=== PATIENT | male | born 1980 ===

== ENCOUNTER 2017-07-07 09:28 | Emergency (ER) | payer OTHER ==
[2017-07-07 09:46] VITALS: BP 130/72; PULSE 88; RESP 17; TEMP 98.1; O2SAT 99
--- NOTE | 2017-07-07 11:03 | ED PDOC ---
Upper Extremity Pain/Injury Chief Complaint (Provider): right 1st finger laceration History Per: Patient History/Exam Limitations: no limitations Onset/Duration Of Symptoms: Hrs Current Symptoms Are (Timing): Still Present Quality: Aching Severity: Mild Pain Scale Rating Of: 3 Exacerbating Factor(s): Nothing Additional Complaint(s): 37 y/o male, with unremarkable PMHx, presents due to right 1st finger laceration that happened approx 1.5 hrs ago. Pt was at his home, attempting to close a window which already contained broken glass when his hand slipped causing a laceration on the palmar aspect of his right 1st digit. Reports moderate amount of bleeding that stopped with compression. 2/10 pain, worse with flexion of finger. Unsure if any glass was injected into the region. Denies tetanus vaccination. Denies any numbness/tingling. No other complaints. <Boom Vargas - Last Filed: 07/07/17 12:07> <Haylee Holland - Last Filed: 07/07/17 15:02> Time Seen by Provider: 07/07/17 10:16 Chief Complaint (Nursing): Abnormal Skin Integrity Past Medical History Vital Signs: Last Vital Signs Temp 98.1 F 07/07/17 09:44 Pulse 88 07/07/17 09:44 Resp 17 07/07/17 09:44 BP 130/72 07/07/17 09:44 Pulse Ox 99 07/07/17 09:44 - Medical History PMH: No Chronic Diseases - Family History Family History: States: No Known Family Hx <Boom Vargas - Last Filed: 07/07/17 12:07> Vital Signs: Last Vital Signs Temp 98.1 F 07/07/17 09:44 Pulse 88 07/07/17 09:44 Resp 17 07/07/17 09:44 BP 130/72 07/07/17 09:44 Pulse Ox 99 07/07/17 12:09 <Haylee Holland - Last Filed: 07/07/17 15:02> - Home Medications Home Medications: Ambulatory Orders Medication Instructions Recorded Cephalexin [Keflex] 500 mg PO BID #14 capsule 07/07/17 - Allergies Allergies/Adverse Reactions: Allergies Allergy/AdvReac Type Severity Reaction Status Date / Time No Known Allergies Allergy Verified 07/07/17 09:46 Review of Systems ROS Statement: Except As Marked, All Systems Reviewed And Found Negative <Boom Vargas - Last Filed: 07/07/17 12:07> Physical Exam - Physical Exam Appears: Positive for: Well, Non-toxic, No Acute Distress Head Exam: Positive for: ATRAUMATIC Skin: Positive for: Normal Color, Warm, Dry Eye Exam: Positive for: EOMI, PERRL Cardiovascular/Chest: Positive for: Regular Rate, Rhythm Respiratory: Positive for: Normal Breath Sounds Pulses-Radial (L): 2+ Pulses-Radial (R): 2+ Extremity: Positive for: Other (flap laceration on right 1st digit, palmar aspect, FROM, mild tenderness to palpation at laceration site. NV intact. ) <Boom Vargas - Last Filed: 07/07/17 12:07> - ECG O2 Sat by Pulse Oximetry: 99 - Progress ED Course And Treament: hand x-ray to rule out foreign body tetanus vaccine wound care/cleaning re-evaluated splint applied keflex script given f/u with PMD in 2 days for wound check Re-evaluation Time: 12:07 Condition: Improved (wound cleaned, no suturing needed, sterile strips applied, splint applied prior to work. ) <Boom Vargas - Last Filed: 07/07/17 12:07> Medical Decision Making Medical Decision Making: pt given on instructions on if the area gets infected needs to return to ED. currently no sutures necc. area cleaned. <Haylee Holland Y - Last Filed: 07/07/17 15:02> Disposition - Patient ED Disposition Is Patient to be Admitted: No - Disposition Disposition: Routine/Home Disposition Time: 12:07 <Boom Vargas - Last Filed: 07/07/17 12:07> <Haylee Holland Y - Last Filed: 07/07/17 15:02> - Clinical Impression Clinical Impression: Finger injury - Disposition Referrals: [facility] [Outside] [facility] [Outside] Condition: IMPROVED Additional Instructions: follow up in two days with your doctor for a wound check return to the ED with any worsening or concerning symptoms. Prescriptions: Cephalexin [Keflex] 500 mg PO BID #14 capsule Instructions: Finger Sprain (ED) Forms: [employer] ([place])
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
== END 2017-07-07 12:19 | disposition home or self-care (01) ==
LOC: H.ER 09:28
DX: S61.011A Laceration without foreign body of right thumb without damage to nail, initial encounter (principal); W25.XXXA Contact with sharp glass, initial encounter

== ENCOUNTER 2017-07-09 15:17 | Emergency (ER) | payer OTHER ==
[2017-07-09 15:22] VITALS: BP 127/79; PULSE 70; RESP 18; TEMP 98; O2SAT 99
--- NOTE | 2017-07-09 15:59 | ED PDOC ---
HPI: Wound Care - HPI Time Seen by Provider: 07/09/17 15:45 Chief Complaint (Nursing): Wound Check Chief Complaint (Provider): Wound check History Per: Patient Exam Limitations: no limitations Additional Complaint(s): Patient is a 37 y/o male with no significant past medical history presenting to the emergency department for a wound check on a laceration located on the second digit of his right hand sustained and evaluated two days ago. Notes taking antibiotics. Denies pain, discharge, swelling, or other complaints. PCP: none provided. Past Medical History Reviewed: Historical Data, Nursing Documentation, Vital Signs Vital Signs: Last Vital Signs Temp 98.0 F 07/09/17 15:19 Pulse 70 07/09/17 15:19 Resp 18 07/09/17 15:19 BP 127/79 07/09/17 15:19 Pulse Ox 99 07/09/17 15:19 - Medical History PMH: No Chronic Diseases - Family History Family History: States: Unknown Family Hx - Home Medications Home Medications: Ambulatory Orders Medication Instructions Recorded Cephalexin [Keflex] 500 mg PO BID #14 capsule 07/07/17 - Allergies Allergies/Adverse Reactions: Allergies Allergy/AdvReac Type Severity Reaction Status Date / Time No Known Allergies Allergy Verified 07/09/17 15:19 Review of Systems ROS Statement: Except As Marked, All Systems Reviewed And Found Negative Musculoskeletal: Positive for: Other (Healing laceration on right finger). Negative for: Hand Pain (swelling or discharge) Physical Exam - Reviewed Nursing Documentation Reviewed: Yes Vital Signs Reviewed: Yes - Physical Exam Appears: Positive for: Well, Non-toxic, No Acute Distress Head Exam: Positive for: ATRAUMATIC, NORMAL INSPECTION, NORMOCEPHALIC Skin: Positive for: Normal Color, Warm, Dry Neck: Positive for: Normal Cardiovascular/Chest: Positive for: Regular Rate, Rhythm Respiratory: Negative for: Accessory Muscle Use, Respiratory Distress Extremity: Positive for: Normal ROM (right hand), Capillary Refill (normal), Other (Healing wound on volar mid phalanx of right second digit with no erythema ). Negative for: Pedal Edema Neurologic/Psych: Positive for: Alert, Oriented (x3) - ECG O2 Sat by Pulse Oximetry: 99 (RA) Pulse Ox Interpretation: Normal Medical Decision Making Medical Decision Makin:58 Patient instructed on proper wound care. Advised to keep wound clean and dry and to continue to look out for any signs of infection. Otherwise, patient is stable for discharge. Instructed to return to ED if symptoms worsen. ~ Scribe Attestation: Documented by Camelia Leon, acting as a scribe for JONH Walsh. Provider Scribe Attestation: All medical record entries made by the Scribe were at my direction and personally dictated by me. I have reviewed the chart and agree that the record accurately reflects my personal performance of the history, physical exam, medical decision making, and the department course for this patient. I have also personally directed, reviewed, and agree with the discharge instructions and disposition. Disposition - Clinical Impression Clinical Impression: Encounter for wound re-check - Patient ED Disposition Is Patient to be Admitted: No Counseled Patient/Family Regarding: Diagnosis, Need For Followup - Disposition Disposition: Routine/Home Disposition Time: 15:58 Condition: STABLE Instructions: Acute Wound Care (ED) Forms: [employer] (Hungarian), [facility] ED School/Work Excuse Print Language: KOSOVAN - PA / RUBBER [employer]ER / Resident Statement MD/ has reviewed & agrees with the documentation as recorded.
== END 2017-07-09 16:26 | disposition home or self-care (01) ==
LOC: H.ER 15:17
DX: Z48.00 Encounter for change or removal of nonsurgical wound dressing (principal)

== ENCOUNTER 2017-08-11 16:46 | Emergency (ER) | payer OTHER ==
[2017-08-11 17:13] VITALS: RESP 18; O2SAT 100
[2017-08-11] MEDS ORDERED: Oxycodone/Acetaminophen 5/325 mg Tab PO STA (17:41)
[2017-08-11] MEDS ORDERED: Oxycodone/Acetaminophen 5/325 mg Tab ONE (18:03)
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
[2017-08-11] MEDS ORDERED: Sodium Chloride 0.9% 1,000 ML IV STA (18:18)
--- NOTE | 2017-08-11 18:41 | US ---
Left lower extremity ultrasound. Indication: Calf pain Technique: Duplex ultrasound evaluation of the left lower extremity Comparison: None available Findings: There is normal flow, compressibility, and augmentation of the left common femoral, femoral, and popliteal veins. The left posterior tibial vein appears patent. Impression: No evidence of deep venous thrombosis in the left lower extremity.
[2017-08-11 19:40] LABS: BASO # 0.1 K/uL (0.0-0.2); BASO % 0.6 % (0.0-2.0); EOS # 0.2 K/uL (0.0-0.7); EOS % 2.1 % (0.0-4.0); HEMOGLOBIN 15.1 g/dL (12.0-18.0); LYMPH # 1.9 K/uL (1.0-4.3); LYMPH % 17.8 % (20.0-40.0); MEAN CELL VOLUME 88.7 fl (80.0-94.0); MEAN CORPUSCULAR HEMOGLOBIN 30.6 pg (27.0-31.0); MEAN CORPUSCULAR HGB CONC 34.5 g/dL (33.0-37.0); MONO # 0.8 K/uL (0.0-0.8); MONO % 7.6 % (0.0-10.0); NEUT # 7.6 K/uL (1.8-7.0); NEUT % 71.9 % (50.0-75.0); NRBC % 0.3 % (0.0-0.0); RBC 4.92 Mil/uL (4.40-5.90); RED CELL DISTRIBUTION WIDTH 12.8 % (11.5-14.5); WHITE BLOOD COUNT 10.6 K/uL (4.8-10.8)
[2017-08-11] MEDS ORDERED: Piperacillin/Tazobact 3.375 GM in Sodium Chloride 0.9% 100 ML IV ONE (19:50)
[2017-08-11] MEDS ORDERED: Piperacillin/Tazobact 3.375 gm Inj IVPB ONE (20:11)
[2017-08-11 20:35] LABS: ALB/GLOB RATIO 1.2 (1.0-2.1); ALBUMIN 3.7 g/dL (3.5-5.0); ALT/SGPT 35 U/L (21-72); AST/SGOT 22 U/L (17-59); BLOOD UREA NITROGEN 18 mg/dl (9-20); CALCIUM 8.3 mg/dL (8.4-10.2); GFR AFRICAN-AMERICAN > 60; GFR NON-AFRICAN AMERICAN > 60
[2017-08-11 21:35] VITALS: BP 116/70; PULSE 78; TEMP 98.2
[2017-08-11] MEDS ORDERED: Silver Sulfadiazine 1% CREAM (50 gm) TOP STA (22:27)
== END 2017-08-11 22:42 | disposition home or self-care (01) ==
LOC: H.ER 16:46
DX: T24.032A Burn of unspecified degree of left lower leg, initial encounter (principal)
CPT/HCPCS: 16030; 80053; 82550; 85025; 87040; 93971; 99282; J2543; J7040